=== PATIENT | female | born 1995 | race Two or more races ===

== ENCOUNTER 2017-08-15 12:52 | Inpatient (IN) | payer OTHER ==
[~2017-08-15] VITALS: Ht 157.5 cm; Wt 82.7 kg
--- NOTE | 2017-08-15 13:07 | NUR ---
PT BIB SELF C/C ABD PAIN WITH CHILLS AND ZIEGLER STS DELIVERED X [address] OGDEN AT BEDSIDE TO [place]
[2017-08-15 13:26] LABS: BASOPHIL % 0.4 % (0-2); PLATELET COUNT 296 x10^3mcL (130-400); RED CELL DISTRIBUTION WIDTH 12.8 % (11.5-14.5)
[2017-08-15 13:27] LABS: UA SPECIFIC GRAVITY >=1.030 (1.005-1.035); microscopic required? YES; urine erythrocyte 3+ (NEGATIVE)
--- NOTE | 2017-08-15 13:30 | NUR ---
PLEASE ENTER FULL NAMES OF WOUND/OSTOMY NURSE/RN Patient data collected by (WOUND/OSTOMY NURSE):Radha SANCHEZ Assessment reviewed and completed by (RN):Lane ABRAMS
[2017-08-15 13:36] LABS: CALCIUM 8.6 mg/dL (8.5-10.1); CHLORIDE SERUM 103 mmol/L (98-107); CREATININE SERUM 0.6 mg/dL (0.6-1.0); GFR1 > 60 mL/min; GLUCOSE SERUM 205 mg/dL (74-106); POTASSIUM SERUM 3.9 mmol/L (3.5-5.1); SODIUM SERUM 137 mmol/L (136-145)
[2017-08-15 13:40] LABS: ALBUMIN 3.4 g/dL (3.4-5.0); ALKALINE PHOSPHATASE 115 U/L (46-116); ALT/SGPT 85 U/L (14-59); AST/SGOT 46 U/L (15-37); BILIRUBIN TOTAL 0.5 mg/dL (0.20-1.00); TOTAL PROTEIN, SERUM 8.1 g/dL (6.4-8.2)
--- NOTE | 2017-08-15 14:00 | NUR ---
PT TAKEN TO RADIOLOGY FOR US
--- NOTE | 2017-08-15 15:35 | NUR ---
DR OGDEN AT BEDSIDE TO GO OVER PLAN FO CARE
--- NOTE | 2017-08-15 15:53 | NUR ---
PT ADMIT TO TELE ROOM 250B GAVE REPORT TO NAOMY
--- NOTE | 2017-08-15 16:10 | NUR ---
RECEIVED PT FROM ED VIA [facility], CAME IN DUE TO ABDOMINAL PAIN AND CHILLS. AAOX4. DENIES HEADACHE/DIZZINESS. NO SOB NOTED. NSR ON THE MONITOR. DENIES ABDOMINAL DISCOMFORT. PT STATED THAT SHE DELIVERED A BABY 2 WEEKS AGO AND HAS CHANGED HER PADS X3 TODAY. SIDE RAILS UPX2. CALL LIGHT ON REACH. ENDORSED
[2017-08-15 16:28] LABS: T3 TOTAL 1.11 ng/mL
[2017-08-15 16:33] VITALS: BP 124/81
[2017-08-15 16:47] LABS: MAGNESIUM 1.6 mg/dL (1.8-2.4)
[2017-08-15 16:48] LABS: CHOLESTEROL/HDL RATIO 2.9
[2017-08-15 16:49] LABS: AMPHETAMINE QUAL UR NONE DETECTED (NEG <=1000)
[2017-08-15 17:00] LABS: FREE T4 0.9 ng/dL (0.76-1.46); FREE THYROXINE INDEX 2.3 ug/dL (1.4-4.5); T4(THYROXINE) 7.9 ug/dL (4.7-13.3)
--- NOTE | 2017-08-15 17:08 | NUR ---
MAGNESIUM LEVEL 1.6 DR. VAUGHN MADE AWARE.
--- NOTE | 2017-08-15 17:30 | NUR ---
DR. VAUGHN AT BEDSIDE PERFORMED PELVIC EXAM, Pt. TOLERATED WELL. IV RATE CHANGED TO 200 ML/HR.
--- NOTE | 2017-08-15 18:15 | NUR ---
Pt. AAOX4, RESPIRATIONS EVEN AND UNLABORED. DENIES PAIN/DISCOMFORT AT THIS TIME. DENIES ABD PAIN/N/V NO DISTRESS NOTED. TELE IN PLACE. IVF RUNNING TO IV AT LEFT HAND PATENT AND INTACT. SMALL AMOUNT VAGINAL BLEEDING PER Pt. BED LOW/LOCKED. CALL LIGHT IN REACH. FAMILY AT BEDSIDE.
--- NOTE | 2017-08-15 19:49 | NUR ---
PATIENT'S PLAN OF CARE WAS DISCUSSED AND REVIEWED WITH PATIENT REGISTRATION CLERK:IVAN HERNANDEZ
--- NOTE | 2017-08-15 19:57 | NUR ---
REEIVED PT INBED AAOX4 , PT DENY ABD PAIN AT THE MOMENT , BS ACTIVE X4 QUADRANT , LUNG SOUNDS CTA, ON TELE NUMBER 33 THAT SHOWS NSR HR 76, PIV INTACT INFUSING WELL .
[2017-08-15 21:03] VITALS: BP 112/72
--- NOTE | 2017-08-16 00:54 | NUR ---
I HAVE REVIEWED THE DATA COLLECTION BY [facility] (NAME):srinivas rios ENTERED ON (DATE/TIME):08/15/17 I CONCUR WITH THE DATA AND ANY EXCEPTIONS OR COMMENTS ARE LISTED BELOW:
--- NOTE | 2017-08-16 01:06 | NUR ---
PT'S IN BED WITH EYES CLOSED , TELE NSR PIV IBTAT INFUSING WELL .
[2017-08-16 06:16] LABS: BASOPHIL % 0.5 % (0-2); PLATELET COUNT 246 x10^3mcL (130-400); RED CELL DISTRIBUTION WIDTH 13.3 % (11.5-14.5)
--- NOTE | 2017-08-16 06:20 | NUR ---
ALL DUE MEDS GIVEN NO REACTION NOTED ,SCANT AMOUNT OF VAG BLEEDING NOTED WHEN PT URINATE, NPT DENY PAIN AT THE MOMENT , TELE NSR , PIV INTACT INFUSING WELL .
[2017-08-16 06:32] LABS: CALCIUM 8.1 mg/dL (8.5-10.1); CARBON DIOXIDE 26.4 mmol/L (21-32); CHLORIDE SERUM 108 mmol/L (98-107); CREATININE SERUM 0.6 mg/dL (0.6-1.0); GFR1 > 60 mL/min; GLUCOSE SERUM 135 mg/dL (74-106); MAGNESIUM 2.1 mg/dL (1.8-2.4); POTASSIUM SERUM 4.2 mmol/L (3.5-5.1); SODIUM SERUM 142 mmol/L (136-145)
--- NOTE | 2017-08-16 07:20 | NUR ---
AAO X4.DENIES ANY PAIN/DISCOMFORT.LUNGS CLEAR.ON SR ON THE MONITOR.IVF NS GOING AT 200 ML/HR INFUSING WELL. MOD VAG BLEEDING NOTED.CALL LIGHT WITHIN REACH.INSTRUCTED TO CALL FOR ANY PAIN/DISCOMFORT.
--- NOTE | 2017-08-16 08:08 | NUR ---
AND MEDICINE TEAM AT BEDSIDE.INFORMED PT ABOUT THE PLAN OF CARE.FOR DR. CHARLES TO SEE PT.PT COOPERATIVE WITH THE PLAN OF CARE.
[2017-08-16 08:57] VITALS: BP 103/67
[2017-08-16 13:45] VITALS: BP 108/56
[2017-08-16 16:44] VITALS: BP 108/56
[2017-08-16 17:01] VITALS: BP 122/84
--- NOTE | 2017-08-16 17:10 | NUR ---
INFOMRED ABOUT PT'S URINE CULTURE=GROUP A BETA HEMOLYTIC STREP.
[2017-08-16] MEDS ORDERED: TYL325 PO (17:29)
[2017-08-16] MEDS ORDERED: LAC PO (17:30)
[2017-08-16] MEDS ORDERED: GLU500 PO (17:31)
[2017-08-16] MEDS ORDERED: AUG500 PO (17:32)
--- NOTE | 2017-08-16 18:18 | NUR ---
PT D/C TO HOME IV AND MONITOR D/C'D.DISCHARGE INSTRUCTION GIVEN.PT VERBALIZES UNDERSTANDING.AWAITIG FOR BROTHER TO REGISTERED NURSE BEHAVIORAL HEALTH PT.
--- NOTE | 2017-08-16 18:41 | NUR ---
BROTHER HERE TO ORGANIZATIONAL DEVELOPMENT CONSULTANT PT.WENT DOWN VIA WHEELCHAIR ACCOMPANIED BY BROTHER AND NATIONAL SERVICE OFFICER.
== END 2017-08-16 18:49 | disposition home or self-care (01) | DRG 566 ==
LOC: ED 12:52 → DU 15:28
PROVIDERS: Emergency Medicine; ADMIT Family Medicine
DX: O99.89 Other specified diseases and conditions complicating pregnancy, childbirth and the puerperium (principal); N17.0 Acute kidney failure with tubular necrosis; O72.2 Delayed and secondary postpartum hemorrhage; O90.4 Postpartum acute kidney failure; O86.20 Urinary tract infection following delivery, unspecified; D35.2 Benign neoplasm of pituitary gland; E11.65 Type 2 diabetes mellitus with hyperglycemia; O24.434 Gestational diabetes mellitus in the puerperium, insulin controlled; E78.5 Hyperlipidemia, unspecified; O99.215 Obesity complicating the puerperium; Z68.33 Body mass index [BMI] 33.0-33.9, adult; Z53.29 Procedure and treatment not carried out because of patient's decision for other reasons; E83.42 Hypomagnesemia; N80.9 Endometriosis, unspecified
CPT/HCPCS: 82962; 83880; 84439; J0696; J1885; J2405; J3475; J7030; Q0092

== ENCOUNTER 2017-09-28 22:52 | Emergency (ER) | payer OTHER ==
[~2017-09-28 22:52] MED LIST: AUG500 PO; GLU500 PO; LAC PO; TYL325 PO
[2017-09-28 23:14] VITALS: BP 122/72
== END 2017-09-29 02:06 | disposition left against medical advice (07) ==
LOC: ED 22:52
DX: Z53.21 Procedure and treatment not carried out due to patient leaving prior to being seen by health care provider (principal)